=== PATIENT | female | born 1950 | race Caucasian/White ===

== ENCOUNTER 2016-10-08 02:31 | Emergency (ER) | payer MEDICAID, MEDICARE, OTHER, SELFPAY ==
[2016-10-08] MEDS ORDERED: Sodium Chloride 0.9% 10 ML Syringe FLUSH PRN (02:53)
--- NOTE | 2016-10-08 02:53 | EDM.PDOC ---
ED HISTORY OF PRESENT ILLNESS - General Chief Complaint: Respiratory Problem Stated Complaint: DYSPNEA Time Seen by Provider: 10/08/16 02:33 Source of Information: Reports: Patient, EMS History Limitations: Reports: No limitations - History of Present Illness INITIAL COMMENTS - FREE TEXT/NARRATIVE: Patient brought in via EMS for chest tightness/pressure, shortness of breath. EMS states her oxygen saturations on room air when they arrived were in the 70' s percentage gómez. She states this began about 2 days ago. She describes it as feeling like their is something heavy on her chest. Arrives here on CPAP. She has history of COPD, her daughter would like her sent to [place] to [facility]. She states she was recently diagnosed with colorectal cancer 2 days ago. She states she was recently hospitalized for a COPD She is not going to be undergoing treatment for this as it is felt that her lungs would not be able to manage the course of treatment. She denies fever/chills, has nausea, no emesis. Denies chest pain, endorses pressure. Voiding and having BM's with no difficulty. Blood pressure stable. Symptom Onset Date: 10/06/16 Severity: moderate Location, General: Reports: chest Quality: Reports: Pressure, Same as previous episode Improves with: Reports: Medication Worsens with: Reports: Movement Associated Symptoms (General): Reports: nausea/vomiting, shortness of breath - Related Data Allergies/ADRs: Allergies Allergy/AdvReac Type Severity Reaction Status Date / Time Penicillins Allergy Severe Anaphylactic Verified 10/08/16 03:25 Shock Sulfa (Sulfonamide Allergy Severe Anaphylactic Verified 10/08/16 03:25 Antibiotics) Shock tetracycline [Tetracycline] Allergy Severe Anaphylactic Verified 10/08/16 03:25 Shock cephalexin [Cephalexin] Allergy Cannot Verified 10/08/16 03:25 Remember Home Meds: Home Meds ALPRAZolam [Xanax] 0.5 mg PO TID PRN 11/04/13 [History] Budesonide [Pulmicort] 0.25 mg IH BID 11/04/13 [History] Ipratropium [Atrovent] 3 ml INH Q4H PRN 11/04/13 [History] Budesonide [Rhinocort Aqua] 1 spray EDMAR DAILY 03/29/14 [History] Carisoprodol [Soma] 1 tab PO BID 03/29/14 [History] Ipratropium [Atrovent] 2.5 ml NEB QID 03/29/14 [History] Ipratropium/Albuterol Sulfate [Iprat-Albut 0.5-3(2.5) MG/3 ML] 3 ml NEB Q4H PRN 03/29/14 [History] Roflumilast [Daliresp] 1 tab PO DAILY 03/29/14 [History] predniSONE 1 tab PO DAILY 03/29/14 [History] Social & Family History - Tobacco Use Years of Tobacco use: 40 Second Hand Smoke Exposure: Yes - Alcohol Use Days Per Week of Alcohol Use: 0 - Recreational Drug Use Recreational Drug Use: No ED ROS GENERAL - Review of Systems Review Of Systems: See Below Constitutional: Reports: no symptoms HEENT: Reports: No symptoms Respiratory: Reports: Shortness of Breath Cardiovascular: Reports: Dyspnea on exertion, Other (chest pressure) Endocrine: Reports: no symptoms GI/Abdominal: Reports: Nausea : Reports: no symptoms Musculoskeletal: Reports: no symptoms Skin: Reports: no symptoms Neurological: Reports: No Symptoms Psychiatric: Reports: No symptoms Hematologic/Lymphatic: Reports: no symptoms Immunologic: Reports: no symptoms ED EXAM, GENERAL - Physical Exam Exam: See Below Exam Limited By: No limitations General Appearance: alert, WD/WN, moderate distress Eye Exam: bilateral eye: EOMI, PERRL Ears: normal TMs Nose: normal inspection Head: atraumatic, normocephalic Neck: normal inspection, supple, non-tender, full range of motion Respiratory/Chest: respiratory distress, decreased breath sounds, rales, wheezing Cardiovascular: normal peripheral pulses, regular rate, rhythm GI/Abdominal: normal bowel sounds, soft, non tender Extremities: normal inspection, normal range of motion, non-tender, no pedal edema Neurological: alert, oriented, CN II-XII intact, normal cognition, normal gait, normal reflexes, no motor/sensory deficits Psychiatric: normal affect, depressed mood Skin Exam: Warm, Dry, Intact Lymphatic: no adenopathy Course - Vital Signs Last Recorded V/S: Last Vital Signs Temp 36.2 C 10/08/16 02:32 Pulse 82 10/08/16 02:32 Resp 13 10/08/16 04:50 BP 177/55 H 10/08/16 04:50 Pulse Ox 97 10/08/16 04:50 - Orders/Labs/Meds Orders: Active Orders 24 hr Category Date Time Status EKG Documentation Completion [RC] URGENT Care 10/08/16 02:33 Active Chest 1V Frontal [CR] Stat Exams 10/08/16 02:33 Taken CBC W/O DIFF,HEMOGRAM [HEME] Q3D Lab 10/09/16 07:00 Ordered CBC W/O DIFF,HEMOGRAM [HEME] Q3D Lab 10/12/16 07:00 Ordered CBC W/O DIFF,HEMOGRAM [HEME] Q3D Lab 10/15/16 07:00 Ordered CBC W/O DIFF,HEMOGRAM [HEME] Q3D Lab 10/18/16 07:00 Ordered CBC W/O DIFF,HEMOGRAM [HEME] Q3D Lab 10/21/16 07:00 Ordered CBC W/O DIFF,HEMOGRAM [HEME] Q3D Lab 10/24/16 07:00 Ordered CBC W/O DIFF,HEMOGRAM [HEME] Q3D Lab 10/27/16 07:00 Ordered Sodium Chloride 0.9% [Normal Saline] 1,000 ml Med 10/08/16 03:00 Active IV ASDIRECTED Sodium Chloride 0.9% [Saline Flush] Med 10/08/16 02:53 Active 10 ml FLUSH ASDIRECTED PRN Saline Lock Insert [OM.PC] Routine Oth 10/08/16 02:53 Ordered Medication Orders Sodium Chloride (Normal Saline) 1,000 mls @ 100 mls/hr IV ASDIRECTED RACHELE Last Admin: 10/08/16 03:30 Dose: 100 mls/hr Sodium Chloride (Saline Flush) 10 ml FLUSH ASDIRECTED PRN PRN Reason: Keep Vein Open Labs: Laboratory Tests 10/08/16 10/08/16 10/08/16 Range/Units 03:07 03:07 03:07 WBC 15.6 H (4.0-10.0) x10^3/uL RBC 4.44 (4.00-5.50) x10^6/uL Hgb 10.9 L (12.0-16.0) g/dL Hct 38.3 (33.0-47.0) % MCV 86.3 (78.0-93.0) fL MCH 24.5 L (26.0-32.0) pg MCHC 28.5 L (32.0-36.0) g/dL RDW Coeff of Samson 24.3 H (10.0-15.0) % Plt Count 187 (130-400) x10^3/uL Add Manual Diff Yes Neutrophils % (Manual) 85 H (50-80) % Lymphocytes % (Manual) 5 L (25-50) % Monocytes % (Manual) 9 (2-11) % Basophils % (Manual) 1 (0-1) % Platelet Estimate Adequate Hypochromasia 1+ slight H Anisocytosis 1+ slight H PT 9.5 L (10.0-12.8) SEC INR 0.8 L (2.0-3.5) D-Dimer, Quantitative (<=0.58) mg/LFEU ABG pH (7.35-7.45) ABG pCO2 (35-45) mmHG ABG pO2 (80-105) mmHG ABG HCO3 ABG Total CO2 ABG O2 Content ABG Base Excess A-a Gradient Oxygen Flow Rate FiO2 Blood Gas Comments Sodium 138 (136-145) mmol/L Potassium 4.8 (3.5-5.1) mmol/L Chloride 91 L (98-107) mmol/L Carbon Dioxide 57 H (21-32) mmol/L BUN 12 (7-18) mg/dL Creatinine 0.5 L (0.55-1.02) mg/dL Est Cr Clr Drug Dosing TNP Estimated GFR (MDRD) > 60 Glucose 118 H (74-106) mg/dL Lactic Acid (0.4-2.0) mmol/L Calcium 8.6 (8.5-10.1) mg/dL Corrected Calcium 9.24 (8.5-10.1) mg/dL Total Bilirubin 0.5 (0.2-1.0) mg/dL AST 39 H (15-37) U/L ALT 26 (14-59) U/L Alkaline Phosphatase 176 H (46-116) U/L Creatine Kinase 50 (26-192) U/L Creatine Kinase Index 2.4 (0.0-4.0) % CK-MB (CK-2) 1.2 (0.0-3.6) ng/mL Troponin I < 0.017 (<=0.056) ng/mL C-Reactive Protein 5.8 H (<=0.9) mg/dL B-Natriuretic Peptide 228 H (<=125) pg/mL Total Protein 6.9 (6.4-8.2) g/dL Albumin 3.2 L (3.4-5.0) g/dL Globulin 3.7 Albumin/Globulin Ratio 0.86 10/08/16 10/08/16 10/08/16 Range/Units 03:07 03:07 03:12 WBC (4.0-10.0) x10^3/uL RBC (4.00-5.50) x10^6/uL Hgb (12.0-16.0) g/dL Hct (33.0-47.0) % MCV (78.0-93.0) fL MCH (26.0-32.0) pg MCHC (32.0-36.0) g/dL RDW Coeff of Samson (10.0-15.0) % Plt Count (130-400) x10^3/uL Add Manual Diff Neutrophils % (Manual) (50-80) % Lymphocytes % (Manual) (25-50) % Monocytes % (Manual) (2-11) % Basophils % (Manual) (0-1) % Platelet Estimate Hypochromasia Anisocytosis PT (10.0-12.8) SEC INR (2.0-3.5) D-Dimer, Quantitative 1.04 H (<=0.58) mg/LFEU ABG pH 7.23 L* (7.35-7.45) ABG pCO2 > 130 H* (35-45) mmHG ABG pO2 295 H (80-105) mmHG ABG HCO3 TNP ABG Total CO2 TNP ABG O2 Content TNP ABG Base Excess TNP A-a Gradient TNP Oxygen Flow Rate TNP FiO2 1.00 Blood Gas Comments Sodium (136-145) mmol/L Potassium (3.5-5.1) mmol/L Chloride (98-107) mmol/L Carbon Dioxide (21-32) mmol/L BUN (7-18) mg/dL Creatinine (0.55-1.02) mg/dL Est Cr Clr Drug Dosing Estimated GFR (MDRD) Glucose (74-106) mg/dL Lactic Acid 0.8 (0.4-2.0) mmol/L Calcium (8.5-10.1) mg/dL Corrected Calcium (8.5-10.1) mg/dL Total Bilirubin (0.2-1.0) mg/dL AST (15-37) U/L ALT (14-59) U/L Alkaline Phosphatase (46-116) U/L Creatine Kinase (26-192) U/L Creatine Kinase Index (0.0-4.0) % CK-MB (CK-2) (0.0-3.6) ng/mL Troponin I (<=0.056) ng/mL C-Reactive Protein (<=0.9) mg/dL B-Natriuretic Peptide (<=125) pg/mL Total Protein (6.4-8.2) g/dL Albumin (3.4-5.0) g/dL Globulin Albumin/Globulin Ratio Meds: Medications Generic Name Dose Route Start Last Admin Trade Name Freq PRN Reason Stop Dose Admin Sodium Chloride 1,000 mls @ 100 mls/hr 10/08/16 03:00 10/08/16 03:30 Normal Saline IV 100 mls/hr ASDIRECTED RACHELE Administration Sodium Chloride 10 ml 10/08/16 02:53 Saline Flush FLUSH ASDIRECTED PRN Keep Vein Open Discontinued Medications Generic Name Dose Route Start Last Admin Trade Name Freq PRN Reason Stop Dose Admin Enoxaparin Sodium 30 mg 10/08/16 05:06 10/08/16 05:17 Lovenox SUBCUT 10/08/16 05:07 30 mg ONETIME ONE Administration Methylprednisolone Sodium Succinate 125 mg 10/08/16 02:54 10/08/16 03:35 Solu-Medrol IVPUSH 10/08/16 02:55 125 mg ONETIME ONE Administration Ondansetron HCl 4 mg 10/08/16 03:19 10/08/16 03:32 Zofran IVPUSH 10/08/16 03:20 4 mg ONETIME ONE Administration - Re-Assessments/Exams Free Text/Narrative Re-Assessment/Exam: 10/08/16 04:34 X-ray results received. No acute process, COPD related findings. Report called to Dr. Curry at [phone], he did accept care of the patient 10/08/16 05:21 D-Dimer did come back positive at 1.04. Patient refused Lovenox injection against medical advice. Risks explained. Departure - Departure Time of Disposition: 05:22 Disposition: DC/Tfer to Acute Hospital 02 Condition: fair Clinical Impression: COPD with exacerbation Instructions: Chronic Obstructive Pulmonary Disease Exacerbation, [id number] Forms: ED Department Discharge, Interfacility Transfer EMTALA - Problem List & Annotations (1) Respiratory acidosis SNOMED Code(s): 10519303 Code(s): E87.2 - ACIDOSIS Status: Acute Priority: Medium (2) COPD with exacerbation SNOMED Code(s): 945719304, 967281325 Code(s): J44.1 - CHRONIC OBSTRUCTIVE PULMONARY DISEASE W (ACUTE) EXACERBATION Status: Acute Priority: Medium - Problem List Review Problem List Initiated/Reviewed/Updated: Yes - My Orders Last 24 Hours: My Active Orders 10/08/16 02:33 EKG Documentation Completion [RC] URGENT Chest 1V Frontal [CR] Stat 10/08/16 02:53 Sodium Chloride 0.9% [Saline Flush] 10 ml FLUSH ASDIRECTED PRN Saline Lock Insert [OM.PC] Routine 10/08/16 03:00 Sodium Chloride 0.9% [Normal Saline] 1,000 ml IV ASDIRECTED 10/09/16 07:00 CBC W/O DIFF,HEMOGRAM [HEME] Q3D 10/12/16 07:00 CBC W/O DIFF,HEMOGRAM [HEME] Q3D 10/15/16 07:00 CBC W/O DIFF,HEMOGRAM [HEME] Q3D 10/18/16 07:00 CBC W/O DIFF,HEMOGRAM [HEME] Q3D 10/21/16 07:00 CBC W/O DIFF,HEMOGRAM [HEME] Q3D 10/24/16 07:00 CBC W/O DIFF,HEMOGRAM [HEME] Q3D 10/27/16 07:00 CBC W/O DIFF,HEMOGRAM [HEME] Q3D - Assessment/Plan Last 24 Hours: My Active Orders 10/08/16 02:33 EKG Documentation Completion [RC] URGENT Chest 1V Frontal [CR] Stat 10/08/16 02:53 Sodium Chloride 0.9% [Saline Flush] 10 ml FLUSH ASDIRECTED PRN Saline Lock Insert [OM.PC] Routine 10/08/16 03:00 Sodium Chloride 0.9% [Normal Saline] 1,000 ml IV ASDIRECTED 10/09/16 07:00 CBC W/O DIFF,HEMOGRAM [HEME] Q3D 10/12/16 07:00 CBC W/O DIFF,HEMOGRAM [HEME] Q3D 10/15/16 07:00 CBC W/O DIFF,HEMOGRAM [HEME] Q3D 10/18/16 07:00 CBC W/O DIFF,HEMOGRAM [HEME] Q3D 10/21/16 07:00 CBC W/O DIFF,HEMOGRAM [HEME] Q3D 10/24/16 07:00 CBC W/O DIFF,HEMOGRAM [HEME] Q3D 10/27/16 07:00 CBC W/O DIFF,HEMOGRAM [HEME] Q3D Plan: [facility] to [facility], Dr. Curry accepting physician.
[2016-10-08] MEDS ORDERED: methylPREDNISolone Sodium Succinate 125 MG/2 ML SDV IVPUSH ONE (02:54)
[2016-10-08] MEDS ORDERED: Sodium Chloride 0.9% 1,000 ML IV SCH (03:00)
[2016-10-08] MEDS ORDERED: Ondansetron 4 MG/2 ML SDV IVPUSH ONE (03:19)
[2016-10-08 03:41] LABS: PO2 ARTERIAL 295 mmHG (80-105)
[2016-10-08 03:54] LABS: CHLORIDE,CL 91 mmol/L (98-107); SODIUM,NA 138 mmol/L (136-145)
[2016-10-08 05:03] LABS: PCO2 ARTERIAL > 130 mmHG (35-45)
[2016-10-08 05:10] VITALS: BP 177/55
[2016-10-08] MEDS: Enoxaparin 30 MG/0.3 ML Syringe SUBCUT ONE ×2 (05:17→05:29)
== END 2016-10-08 05:31 | disposition short-term general hospital (02) ==
LOC: VM.ED 02:31
DX: J44.1 Chronic obstructive pulmonary disease with (acute) exacerbation (principal); E87.2 Acidosis; Z88.0 Allergy status to penicillin; Z88.2 Allergy status to sulfonamides; Z88.8 Allergy status to other drugs, medicaments and biological substances; Z79.899 Other long term (current) drug therapy
CPT/HCPCS: 36600; 71010; 80053; 82550; 82553; 82803; 83605; 83880; 84484; 85025; 85379; 85610; 86140; 93005; 96361; 96374; 96375; 99285; J2405; J2930; J7030; J1650